=== PATIENT | male | born 1980 | race Caucasian/White ===

== ENCOUNTER 2017-10-27 20:33 | Emergency (ER) | payer BC ==
--- NOTE | 2017-10-27 22:03 | EDM.PDOC ---
ED HPI GENERAL MEDICAL PROBLEM - General Chief Complaint: Genitourinary Problem Stated Complaint: GROIN PAIN Time Seen by Provider: 10/27/17 21:47 Source of Information: Reports: Patient History Limitations: Reports: No Limitations - History of Present Illness INITIAL COMMENTS - FREE TEXT/NARRATIVE: The patient states that he developed right testes pain and some swelling around 18:00 tonight. He states that it got bad around 20:30. He states that he had chills, and his temperature was 100.5 just before coming to the ED. No injury to the area. No prior similar symptoms. The patient drove himself to the ED. The patient's PCP is Ruthy Rodriguez. groin Pain Score (Numeric/FACES): 6 - Related Data Allergies Allergy/AdvReac Type Severity Reaction Status Date / Time No Known Allergies Allergy Verified 10/27/17 20:47 Home Meds: Home Meds Levofloxacin [Levaquin] 1 tab PO QPM #9 tablet 10/28/17 [Rx] Past Medical History HEENT History: Reports: Allergic Rhinitis Musculoskeletal History: Reports: Fracture (right scaphoid) Psychiatric History: Reports: Anxiety - Past Surgical History HEENT Surgical History: Reports: Oral Surgery (wisdom teeth extraction), Tonsillectomy Musculoskeletal Surgical History: Reports: Other (See Below) (Right scaphoid bone graft) Social & Family History - Tobacco Use Smoking Status *Q: Current Some Day Smoker Years of Tobacco use: 20 - Alcohol Use Alcohol Use History: Yes Days Per Week of Alcohol Use: 2 Number of Drinks Per Day: 3 Total Drinks Per Week: 6 Alcohol Use Frequency: Socially - Recreational Drug Use Recreational Drug Use: Yes Drug Use in Last 12 Months: No Recreational Drug Type: Reports: Marijuana/Hashish (last smoked around 24 years old) - Living Situation & Occupation Living situation: Reports: , with Spouse, with Family (2 kids) Occupation: Employed (technical sales engineer) ED ROS GENERAL - Review of Systems Review Of Systems: ROS reveals no pertinent complaints other than HPI. ED EXAM, RENAL/ - Physical Exam Exam: See Below Exam Limited By: No Limitations General Appearance: Alert, WD/WN, No Apparent Distress Eye Exam: Bilateral Eye: EOMI, Normal Inspection Ears: Normal External Exam, Hearing Grossly Normal Nose: Normal Inspection, No Blood Throat/Mouth: Normal Inspection, Normal Lips, Normal Voice, No Airway Compromise Head: Atraumatic, Normocephalic Neck: Normal Inspection, Full Range of Motion Respiratory/Chest: No Respiratory Distress, Lungs Clear, Normal Breath Sounds, No Accessory Muscle Use Cardiovascular: Normal Peripheral Pulses, Regular Rate, Rhythm, No Edema, No Gallop, No JVD, No Murmur, No Rub GI/Abdominal: Normal Bowel Sounds, Soft, No Organomegaly, No Distention, No Abnormal Bruit, No Mass, Tender (Right lower quadrant only. Nontender elsewhere. ) (Male) Exam: No Hernia, Circumcised, Cremasteric Reflex (slightly present on right), Testicular Mass (right, c/w epididymitis), Testicular Tenderness (R). No: Hernia, Inguinal Lymphadenopathy, Penile Lesions, Rash, Scrotal Swelling, Scrotum Tenderness (L), Scrotum Tenderness (R), Suprapubic Fullness, Testicular Tenderness (L), Urethral Discharge Rectal (Males) Exam: Deferred Back Exam: Normal Inspection, Full Range of Motion, NT Extremities: Normal Inspection, Normal Range of Motion, No Pedal Edema, Normal Capillary Refill Neurological: Alert, Oriented, Normal Cognition, No Motor/Sensory Deficits Psychiatric: Normal Affect Skin Exam: Warm, Dry, Intact, Normal Color, No Rash Course - Vital Signs Last Recorded V/S: Last Vital Signs Temp 37.2 C 10/27/17 20:47 Pulse 75 10/27/17 20:47 Resp 18 10/27/17 20:47 BP 124/84 10/27/17 20:47 Pulse Ox 98 10/27/17 20:47 - Orders/Labs/Meds Orders: Active Orders 24 hr Category Date Time Status Scrotum and Contents [US] Stat Exams 10/27/17 22:01 Taken Labs: Laboratory Tests 10/27/17 Range/Units 22:08 C trachomatis DNA (PCR) Not detected N gonorrhoeae DNA (PCR) Not detected Meds: Medications Discontinued Medications Generic Name Dose Route Start Last Admin Trade Name Freq PRN Reason Stop Dose Admin Ibuprofen 600 mg 10/27/17 23:22 10/27/17 23:29 Motrin PO 10/27/17 23:23 600 mg ONETIME ONE Administration Levofloxacin 500 mg 10/28/17 00:28 10/28/17 00:51 Levaquin PO 10/28/17 00:29 500 mg ONETIME ONE Administration - Re-Assessments/Exams Free Text/Narrative Re-Assessment/Exam: 10/27/17 22:02 The patient has relatively sudden onset right testes pain, swelling, and tenderness. On examination, he does have some fullness to the right testes, which is tender, most consistent with epididymitis, and he may have a slight right cremasteric reflex. I have ordered a GC/chlamydia by PCR, but I also want to be certain that he does not have testicular torsion, therefore I ordered a ultrasound of the scrotum. 10/27/17 23:50 Ultrasound of the scrotum is read by [facility] as "Possible mild right epididymal orchitis." 10/27/17 23:52 Lab tells me that the GC/chlamydia by PCR results will be available in about 10 minutes. 10/28/17 00:29 The patient's GC/chlamydia by PCR has returned negative. In accordance with current guidelines, I will start the patient on a 10-day course of Levaquin 500 mg daily. 10/28/17 00:34 The above was discussed with the patient. I will discharge him home with a prescription for Levaquin, and [facility]'s prescription for [place]. I will also refer him to Dr. Moran, should his symptoms not improve within a week. Departure - Departure Time of Disposition: 00:37 Disposition: Home, Self-Care 01 Condition: Good Clinical Impression: Epididymitis - Discharge Information *PRESCRIPTION DRUG MONITORING PROGRAM REVIEWED*: Not Applicable *COPY OF PRESCRIPTION DRUG MONITORING REPORT IN PATIENT BARRY: Not Applicable Prescriptions: Levofloxacin [Levaquin] 1 tab PO QPM #9 tablet Instructions: Epididymitis Referrals: Rtuhy Rodriguez NP [Primary Care Provider] - Raymond Moran MD [Ordering Only Provider] - Forms: ED Department Discharge Additional Instructions: You were seen in the emergency room for right testicular pain. Workup in the ER included a urine gonorrhea/Chlamydia test and an ultrasound of your testicle. The ultrasound confirmed that you have epididymitis - an infection next to the testicle, and the gonorrhea/Chlamydia test returned negative, indicating that it is infected with some other organism. You have been started on the antibiotic Levaquin. A prescription for Levaquin has been sent to the [facility] located in the [employer] store. Take one tablet before bed each evening, starting Tuesday evening, 10/28/2017. Take [id number] ibuprofen, 2-3 tablets (400-600 mg) every 8 hours, with food, [id number]. You may also take 1-2 tablets of the opioid pain reliever [place] up to every 6 hours, as needed for pain not relieved by ibuprofen. If you take [place], do not drive or operate heavy machinery for 10 hours afterwards. Fost[place] will likely cause constipation, so consider taking a stool softener. If your pain has not resolved within a week, please follow-up with the Urologist Dr. Raymond Moran in [place]. If any other problems, please do not hesitate to return to the ER. - My Orders Last 24 Hours: My Active Orders 10/27/17 22:01 Scrotum and Contents [US] Stat - Assessment/Plan Last 24 Hours: My Active Orders 10/27/17 22:01 Scrotum and Contents [US] Stat
[2017-10-27] MEDS ORDERED: Ibuprofen 600 MG Tab PO ONE (23:22)
[2017-10-28 00:06] LABS: C. TRACHOMATIS BY PCR NOT DETECTED; N. GONORRHOEAE BY PCR NOT DETECTED
[2017-10-28] MEDS ORDERED: Levofloxacin 500 MG Tab PO ONE (00:28)
--- NOTE | 2017-11-02 08:09 | US ---
Testicular ultrasound: Multiple real-time images of the testicles were obtained. Testicles have a homogeneous ultrasound appearance. Both arterial and venous blood flow are seen. There is asymmetric increased blood flow noted within the right testicle. Epididymis appears within normal limits. Minimal hydroceles are seen on both sides. Measurements: Right testicle: 5.1 x 2.3 x 4.9 cm Left testicle: 4.3 x 2.2 x 2.9 cm Impression: 1. Increased Doppler blood flow within the right testicle raising the possibility of orchitis. Diagnostic code #3 I agree with preliminary report issued by [facility] ([facility] preliminary report dictated on 10/28/17, 12:21 AM Central Time)
== END 2017-10-28 00:55 | disposition home or self-care (01) ==
LOC: JD.ED 20:33
DX: N45.1 Epididymitis (principal); F17.210 Nicotine dependence, cigarettes, uncomplicated
CPT/HCPCS: 76870; 87491; 87591; 93975; 99284; A9270; 99283

== ENCOUNTER 2017-10-28 15:15 | Emergency (ER) | payer BC ==
--- NOTE | 2017-10-28 17:13 | EDM.PDOC ---
ED HPI GENERAL MEDICAL PROBLEM - General Chief Complaint: Fever Stated Complaint: SITUATION HAS GOTTEN WORST FROM LAST NIGHT/ FEVER Time Seen by Provider: 10/28/17 15:28 Source of Information: Reports: Patient, Old Records History Limitations: Reports: No Limitations - History of Present Illness INITIAL COMMENTS - FREE TEXT/NARRATIVE: This is a 37 y/o M that was seen last night by Dr. Tinajero for right scrotum pain. He was diagnosed with Epididymitis and sent home on a 10-day course of Levaquin 500mg [place] and a referral to Urologist Dr. Moran. GC/ Chlamydia was negative. He comes back today with concern of high fever, swelling , nausea and increased pain. He states his at home temperature was 104.1 and Percocet was not helping his pain. He did take ibuprophen 600mg 2 hours before arriving at the ED which he states seemed to help with the pain and swelling. His temperature here is now 99.9. His nausea has also gone away. Currently he is stating he is feeling better but wanted to come in to be checked just in case. Right Pain Score (Numeric/FACES): 6 - Related Data Allergies Allergy/AdvReac Type Severity Reaction Status Date / Time No Known Allergies Allergy Verified 10/27/17 20:47 Home Meds: Home Meds Levofloxacin [Levaquin] 1 tab PO QPM #9 tablet 10/28/17 [Rx] oxyCODONE HCl/Acetaminophen [Percocet 5-325 mg Tablet] 1 - 2 tab PO Q6H PRN [History] Past Medical History - Past Health History Medical/Surgical History: Denies Medical/Surgical History HEENT History: Reports: Allergic Rhinitis Musculoskeletal History: Reports: Fracture Psychiatric History: Reports: Anxiety - Past Surgical History HEENT Surgical History: Reports: Oral Surgery, Tonsillectomy GI Surgical History: Reports: Other (See Below) Other GI Surgeries/Procedures: swollen right testicle Musculoskeletal Surgical History: Reports: Other (See Below) Social & Family History - Tobacco Use Smoking Status *Q: Never Smoker - Caffeine Use Caffeine Use: Reports: Coffee, Soda - Recreational Drug Use Recreational Drug Use: No - Living Situation & Occupation Living situation: Reports: , with Spouse, with Family (2 kids) 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 Constitutional: Reports: Fever ED EXAM, RENAL/ - Physical Exam Exam: See Below Exam Limited By: No Limitations General Appearance: Alert, WD/WN, No Apparent Distress Eye Exam: Bilateral Eye: PERRL Ears: Normal External Exam, Hearing Grossly Normal Head: Atraumatic, Normocephalic Respiratory/Chest: No Respiratory Distress, Lungs Clear, Normal Breath Sounds, No Accessory Muscle Use, Chest Non-Tender Cardiovascular: Normal Peripheral Pulses, Regular Rate, Rhythm, No Edema, No Gallop, No JVD, No Murmur, No Rub GI/Abdominal: Normal Bowel Sounds, Soft, Non-Tender, No Organomegaly, No Distention, No Abnormal Bruit, No Mass (Male) Exam: No Hernia, Cremasteric Reflex (intact bilaterally), Scrotal Swelling (mild swelling of the right scrotum), Scrotum Tenderness (R), Testicular Tenderness (R) Rectal (Males) Exam: Deferred Psychiatric: Normal Affect, Normal Mood Skin Exam: Warm, Dry, Intact, No Rash, Erythema (right scrotum), Increased Warmth (right scrotum) Course - Vital Signs Last Recorded V/S: Last Vital Signs Temp 99.4 F 10/28/17 17:35 Pulse 80 10/28/17 15:40 Resp 20 10/28/17 15:40 BP 110/67 10/28/17 15:40 Pulse Ox 96 10/28/17 15:40 Departure - Departure Time of Disposition: 17:17 Disposition: Home, Self-Care 01 Condition: Fair Clinical Impression: Epididymitis - Discharge Information *PRESCRIPTION DRUG MONITORING PROGRAM REVIEWED*: Not Applicable *COPY OF PRESCRIPTION DRUG MONITORING REPORT IN PATIENT BARRY: Not Applicable Instructions: Epididymitis, Testicular Self-Exam, [id number], Fever, Adult, [id number] Referrals: Ruthy Rodriguez NP [Primary Care Provider] - Forms: ED Department Discharge Additional Instructions: You were seen in the emergency room for right testicular pain and fever. You physical exam confirmed the epididymitis you were diagnosed with yesterday. No other concerns from physical exam today. No indications for further workup. Recommend continue following the prescribed regimen yesterday of antibiotics and pain medication. Workup Yesterday: Your workup in the ER yesterday showed that you have epididymitis - an infection next to the testicle, and the gonorrhea/Chlamydia test returned negative, indicating that it is infected with some other organism. You were started on the antibiotic Levaquin. Continue taking this medication as prescribed. It will take the antibiotics some time to start working. Take over- the-counter ibuprofen, 2-3 tablets (400-600 mg) every 8 hours, with food, around -the-clock for pain and fever. You may also take 1-2 tablets of the opioid pain reliever [place] up to every 6 hours, as needed for pain not relieved by ibuprofen. If you take [place], do not drive or operate heavy machinery for 10 hours afterwards. [place] will likely cause constipation, so consider taking a stool softener. If your pain has not resolved within a week, please follow-up with the Urologist Dr. Raymond Moran in [place]. If any other problems, please do not hesitate to return to the ER.
== END 2017-10-28 17:34 | disposition home or self-care (01) ==
LOC: JD.ED 15:15 → SUPCPDRO 15:15 → JD.ED 17:34
DX: N45.1 Epididymitis (principal)
CPT/HCPCS: 99283